=== PATIENT | male | born 1950 | race Caucasian/White ===

== ENCOUNTER 2017-11-11 17:07 | Inpatient (IN) | payer OTHER ==
[~2017-11-11] VITALS: Ht 177.8 cm; Wt 89.8 kg
[~2017-11-11 17:07] MED LIST: Advair 100/50 Diskus IH; Augmentin PO; FLEXERIL10 MG PO; Flonase BOTH NARES; PERCOCET 5/31 TABLET PO
[2017-11-11 18:02] LABS: HEMATOCRIT 34.6 % (38.0-50.0); HEMOGLOBIN 12.1 G/DL (12.5-16.6); MCH 31.1 PG (29.0-34.0); MCV 88.9 FL (86-99); PLATELET COUNT 196 K/uL (156-360); RBC DIS.WIDTH-CV 12.7 % (11.8-14.6); RBC DIS.WIDTH-SD 41.5 % (39-53); RED BLOOD COUNT 3.89 M/uL (4.00-5.50); WHITE BLOOD COUNT 26.4 K/uL (4.1-10.2)
[2017-11-11 18:09] LABS: CHLORIDE 100 mEq/L (99-109); SODIUM 133 mEq/L (136-147)
[2017-11-11 18:11] LABS: GLUCOSE 177 mg/dL (70-99)
[2017-11-11 18:15] LABS: CREATININE 1.3 mg/dL (0.6-1.3); GFR ESTIMATE (CALCULATED) 59 mL/min/ (58.99-99999)
[2017-11-11 18:16] LABS: UREA NITROGEN (BUN) 24 mg/dL (9-23)
[2017-11-11] MEDS ORDERED: CRESTOR20 MG PO (18:57)
[2017-11-11] MEDS ORDERED: GLUCOPHAGE500 MG PO (18:57)
[2017-11-11] MEDS ORDERED: ZESTRIL20 MG PO (18:57)
[2017-11-11] MEDS ORDERED: ALAVERT10 M1 PO (18:57)
[2017-11-11] MEDS ORDERED: LO-DOSE ASPIRIN81 M1 PO (18:58)
[2017-11-11] MEDS ORDERED: ADVAIR 100/501 DISK IH (18:58)
[2017-11-11] MEDS ORDERED: VITAMIN D31000 UNI2 PO (18:58)
[2017-11-11] MEDS ORDERED: TYLENOL EXTRA500 MG PO (18:59)
[2017-11-11] MEDS ORDERED: FLONASE16 G1 BOTH NARES (18:59)
[2017-11-11 19:03] LABS: ABS NEUTROPHIL COUNT 23.9; ANISOCYTOSIS NONE SEEN; BAND NEUTROPHILS 11.3 % (0-8.0); EOSINOPHIL ABS CT 0; HEMATOLOGY COMMENT 1 SN; LYMPHOCYTES 7.4 % (15.0-45.0); METAMYELOCYTES 1.8 %; MICROCYTOSIS 2+; MONOCYTES 0.4 % (0-9.0); PLAT.SUFFICIENCY ADEQUATE; POLYCHROMASIA 1+; SEG.NEUTROPHILS 79.1 % (46.0-76.0); SPHEROCYTES 1+
[2017-11-11 21:13] VITALS: BP 139/68
[2017-11-11 23:17] VITALS: BP 144/65
[2017-11-12 06:40] LABS: BASOPHIL (%) 0.1 % (0-1); EOSINOPHIL (%) 0.1 % (0-5); HEMATOCRIT 37.5 % (38.0-50.0); HEMOGLOBIN 12.5 G/DL (12.5-16.6); IMMATURE GRANULOCYTE (%) 0.7 % (0.0-0.7); LYMPHOCYTE COUNT 3.2 K/uL (1.0-2.8); MCH 30.9 PG (29.0-34.0); MCHC 33.3 G/DL (30.0-36.0); MCV 92.6 FL (86-99); MONOCYTE (%) 3.6 % (3-12); MONOCYTE COUNT 0.8 K/uL (0-0.8); NEUTROPHIL (%) 80.5 % (45-76); NEUTROPHIL COUNT 17.2 K/uL (1.8-6.4); PLATELET COUNT 192 K/uL (156-360); RBC DIS.WIDTH-CV 12.9 % (11.8-14.6); RBC DIS.WIDTH-SD 44.1 % (39-53); RED BLOOD COUNT 4.05 M/uL (4.00-5.50); WHITE BLOOD COUNT 21.3 K/uL (4.1-10.2)
[2017-11-12 07:06] LABS: ALBUMIN 3.5 G/DL (3.2-4.8); ALKALINE PHOSPHATASE 69 IU/L (3-129); ALT (GPT) 16 IU/L (3-49); AST (GOT) 21 IU/L (2-34); CHLORIDE 109 MEQ/L (99-109); DIRECT BILIRUBIN 0.2 mg/dL (0.0-0.3); GFR ESTIMATE (CALCULATED) > 59 mL/min/ (58.99-99999); POTASSIUM 4.2 MEQ/L (3.7-5.4); TOTAL BILIRUBIN 0.8 MG/DL (0.0-1.0); TOTAL PROTEIN 5.9 G/DL (6.4-8.3); UREA NITROGEN (BUN) 15 mg/dL (9-23)
[2017-11-12 07:13] LABS: GLUCOSE 88 mg/dL (70-99); SODIUM 142 MEQ/L (136-147)
[2017-11-12 07:26] VITALS: BP 129/75
[2017-11-12 11:19] VITALS: BP 140/69
[2017-11-12 15:45] VITALS: BP 131/60
[2017-11-12 20:25] VITALS: BP 148/70
[2017-11-12 23:46] VITALS: BP 153/80
[2017-11-13 05:57] LABS: HEMATOCRIT 34.5 % (38.0-50.0); HEMOGLOBIN 11.6 G/DL (12.5-16.6); MCH 30.5 PG (29.0-34.0); MCHC 33.6 G/DL (30.0-36.0); MCV 90.8 FL (86-99); PLATELET COUNT 195 K/uL (156-360); RBC DIS.WIDTH-CV 12.8 % (11.8-14.6); RBC DIS.WIDTH-SD 42.5 % (39-53); WHITE BLOOD COUNT 10.4 K/uL (4.1-10.2)
[2017-11-13 06:15] LABS: CHLORIDE 108 MEQ/L (99-109); CREATININE 1.1 MG/DL (0.6-1.3); GFR ESTIMATE (CALCULATED) > 59 mL/min/ (58.99-99999); GLUCOSE 106 mg/dL (70-99); POTASSIUM 4.3 MEQ/L (3.7-5.4); SODIUM 142 MEQ/L (136-147); UREA NITROGEN (BUN) 13 mg/dL (9-23)
[2017-11-13 08:05] VITALS: BP 143/75
[2017-11-13] MEDS ORDERED: LEVAQUIN750 MG PO (12:41)
[2017-11-13 16:20] VITALS: BP 135/70
== END 2017-11-13 16:29 | disposition home or self-care (01) | DRG 871 ==
LOC: EME 17:07 → EDOF 20:05 → 5EAST 20:05
PROVIDERS: Emergency Medicine; Hospitalist; Internal Medicine
DX: A41.9 Sepsis, unspecified organism (principal); J15.9 Unspecified bacterial pneumonia; J12.9 Viral pneumonia, unspecified; E87.1 Hypo-osmolality and hyponatremia; J98.11 Atelectasis; Z94.81 Bone marrow transplant status; R65.20 Severe sepsis without septic shock; E11.9 Type 2 diabetes mellitus without complications; E78.5 Hyperlipidemia, unspecified; I10 Essential (primary) hypertension; D64.9 Anemia, unspecified; J45.909 Unspecified asthma, uncomplicated; Z87.891 Personal history of nicotine dependence; Z85.72 Personal history of non-Hodgkin lymphomas; Z92.21 Personal history of antineoplastic chemotherapy; Z79.84 Long term (current) use of oral hypoglycemic drugs; Z79.51 Long term (current) use of inhaled steroids; Z80.42 Family history of malignant neoplasm of prostate; Z83.3 Family history of diabetes mellitus
CPT/HCPCS: 71045; 71046; 71250; 80048; 80076; 82948; 83605; 85025; 85027; 87040; 87070; 87205; 87449; 87502; 94640; 94664; 99281; 99285; J0456; J0692; J1644; J2543; J3370; J7030